=== PATIENT | female | born 1995 | race Caucasian/White ===

== ENCOUNTER 2017-12-10 09:58 | Outpatient (CLI) | payer MEDICAID, SELFPAY ==
[2017-12-10 10:34] LABS: HCT 36.7 % (36.0-46.0); HGB 12.7 g/dL (12.0-15.5); Mean Corp. HGB Concentration 34.6 g/dL (32.0-36.0); Mean Corpuscular Volume 92.4 fL (80-95); Mean Platelet Volume 10.6 fL (8.0-11.0); Platelet Count 220 x1000/uL (130-400); RBC 3.97 m/cumm (4.00-5.20); RBC Distribution Width 12.7 % (11.7-14.6)
[2017-12-10 11:48] LABS: ALT 20 U/L (12-78); AST 18 U/L (15-37); Albumin 3.9 g/dL (3.4-5.0); Alkaline Phosphatase 83 U/L (46-116); Anion Gap 10.6 mmol/L (3-11); BUN 8 mg/dL (7-18); Bilirubin, Total 0.5 mg/dL (0.2-1.0); CO2 25.4 mmol/L (21.0-32.0); CREATININE 0.81 mg/dL (0.55-1.02); Calcium 8.6 mg/dL (8.5-10.1); Chloride 104 mmol/L (98-107); Glucose 88 mg/dL (70-100); Potassium 4.1 mmol/L (3.5-5.1); Sodium 140 mmol/L (136-145); Total Protein 6.6 g/dL (6.4-8.2)
--- NOTE | 2017-12-10 23:27 | HPE_ITS ---
Date of service: 12/10/17 Time of Service: 09:26 Assessment and Plan (1) Pelvic pain: Current visit: Yes Status: Acute Plan at this time is to proceed with a vaginal hysterectomy. The patient was counseled regarding the risks of a hysterectomy including the risk of damage to the bowel bladder and blood vessels and need for transfusion or larger incision. I also counseled the patient that if we are unable to perform vaginal hysterectomy successfully we will proceed with laparoscopic approach. She is aware that there may not be an improvement in her pain with a hysterectomy. Plan at this time is to proceed with a dose of low molecular weight heparin prior to the procedure and daily for 6 weeks after the surgery. Informed consent was obtained her questions were answered she will be n.p.o. after midnight (2) Dysmenorrhea: Current visit: Yes Status: Acute History of Present Illness Chief Complaint: 22-year-old 042 female who presents for a preoperative H& P Narrative: Ms. Gambino presents for a preoperative H&P in anticipation of a vaginal hysterectomy on 12/11/2017. In brief; the patient underwent an elective repeat delivery with tubal sterilization on 06/19/2017. Her immediate postop course was unremarkable she was discharged home on postop day #2 breast- feeding and received prophylactic anticoagulation with low molecular weight heparin for 6 weeks for DVT prophylaxis Her pain began in June/2017 with incisional discomfort vaginal discharge and suprapubic pain she was treated with a course of clindamycin for presumed endometritis without improvement in her symptoms. 07/2017 pain localized to her left lower quadrant and was concerning for entrapment of the left iliohypogastric nerve. The symptoms eventually subsided prior to her having a formal evaluation of the pain clinic. She continued to breast-feed her daughter until August. -09/2017 she resumed irregular menses with significant dysmenorrhea pelvic ultrasounds performed that was normal for adnexa and uterus she was treated with a course of Cipro and Flagyl for presumed endomyometritis without improvement she required doses of both oxycodone or Vicodin in addition to NSAIDs with some but not long acting pain relief. 10/2017 Suri IUD was placed in attempt to treat her dysmenorrhea without relief she was unable to tolerate the Suri. And had minimal relief from NSAIDs or narcotics. 11/19/2017 the time of the patient's last office visit we discussed treatment options and the plan was to proceed with a vaginal hysterectomy with ovarian conservation for unremitting pelvic pain. Review of Systems Constitutional Reports anorexia (With accompanying nausea during dysmenorrhea) and Reports difficulty sleeping (Secondary to pelvic pain) Cardiovascular Reports system reviewed and no additional complaints, except as docu Respiratory Reports system reviewed and no additional complaints, except as docu Gastrointestinal Reports abdominal pain and Reports other (No changes in bowel habits no constipation or diarrhea) Genitourinary Reports light periods (Periods have that every 2-3 weeks with average amount of flow but significant disabling dysmenorrhea), Reports dyspareunia (She reports pain with intercourse and is unable to be sexually active secondary to her pelvic discomfort), Reports dysmenorrhea and Reports pelvic pain (Constant exacerbated with menses) Musculoskeletal Reports system reviewed and no additional complaints, except as docu Neurologic Reports system reviewed and no additional complaints, except as docu Psychiatric Reports anxiety (Concerned about undergoing surgery and having complications with either procedure or excessive pain postop) PFSH Medical History Dysmenorrhea (Acute) Pelvic pain (Acute) Raynauds phenomenon (Suspected) Migraine Dysmenorrhea (Acute) Hx pulmonary embolism Social History Smoking/Tobacco Use Status: Current every day Surgical History section (01/27/14) Ligation of fallopian tube (06/19/17) Female Reproductive History Menstrual Date of last menstrual period: 12/03/17 control method: permanent sterilization Total pregnancies: 6 Full term: 2 Premature: 0 Ab spontaneous: 4 Multiple births: 0 Meds Home Medications Medication Instructions Recorded Confirmed Type acetaminophen [Tylenol] 650 mg PO PRN PRN 10/27/15 12/10/17 History Proventil Hfa 1 puff INHALATION Q6H PRN #1 06/12/17 12/10/17 Clinic inhaler fluticasone [Flovent HFA] 1 puff INHALATION BID PRN 12/09/17 12/10/17 History oxycodone 10 mg PO Q4H PRN PRN 12/09/17 12/10/17 History Allergies Allergy/AdvReac Type Severity Reaction Status Date / Time amoxicillin Allergy Intermediate Hives Unverified 12/10/17 08:55 morphine Allergy Intermediate Hives Unverified 12/10/17 08:55 Exam Const General: cooperative, healthy appearing, comfortable and no acute distress Nutritional Appearance: average body habitus Orientation: alert, awake, oriented x3 and other Neck Neck: normal visual inspection Resp Effort & Inspection: normal respiratory effort Cardio Rate: regular rate Rhythm: regular rhythm Heart Sounds: S1 normal and S2 normal GI Inspection: normal to inspection and other (Stretch adhikari from ) Palpation: soft and no hepatosplenomegaly Speculum Exam - Vagina: other (Bimanual and speculum exam deferred) Bimanual Exam- Vagina & Uterus: other (Suprapubic tenderness with palpation of the uterus no evidence of adnexal tenderness with palpation) Back/Spine/Pelvis Back: no CVA tenderness Pelvis: tenderness over symphysis pubis Sacroiliac joints: bilaterally (Normal) Sacrum: other Skin General skin exam: no rashes or lesions noted Wounds: wounds noted (Surgical site well-healed) Neuro General: alert and oriented x3 Motor: strength 5/5 throughout DTR's: Rt Patellar: 1+ and Lt Patellar: 1+ Results Labs : 12/10/17 10:20 12/10/17 10:20 Laboratory Results - last 24 hr 12/10/17 12/10/17 12/10/17 10:20 10:20 10:20 WBC 4.40 RBC 3.97 L Hgb 12.7 Hct 36.7 MCV 92.4 MCH 32.0 MCHC 34.6 RDW 12.7 Plt Count 220 MPV 10.6 Sodium 140 Potassium 4.1 Chloride 104 Carbon Dioxide 25.4 Anion Gap 10.6 BUN 8 Creatinine 0.81 Estimated GFR/1.73 m2 >= 60.00 Glucose 88 Calcium 8.6 Total Bilirubin 0.5 AST 18 ALT 20 Alkaline Phosphatase 83 Total Protein 6.6 Albumin 3.9 Patient ABO/Rh B Positive Antibody Screen Negative
== END 2017-12-10 10:18 ==
PROVIDERS: PCP Nurse Practitioner Family; Visit Provider Obstetrics & Gynecology Gynecology
DX: R10.2 Pelvic and perineal pain (principal); N94.6 Dysmenorrhea, unspecified
CPT/HCPCS: 36415; 80053; 85027; 86850; 86900; 86901; NC

== ENCOUNTER 2017-12-11 14:22 | Observation (INO) | payer MEDICAID, SELFPAY ==
[2017-12-11] VITALS (15 sets, daily range): BP systolic 92–118; BP diastolic 39–73; PULSE 55–72; RESP 13–21; TEMP 36.1–36.9; O2SAT 97–99
[2017-12-11] MEDS: Lactated Ringers 1,000 ML 125 ML IV ×3 (10:05→16:59)
--- NOTE | 2017-12-11 13:40 | UTER_PTH ---
PATIENT: DAMIEN MCCARTNEY LOC: U#:[id number] AGE/SX: 22/F ROOM: 204 RE12/11/[address]: Nan Saleh : 1995 BED: A DIS: 12/12/2017 SPEC #: [id number] RECD: 12/11/17 15:31 STATUS: KIRA REQ #: [id number] MARIELA: 12/11/17 13:[address]: Nan Saleh DEPT: Surgical Specimen RECD BY: Santo Nunes ENTERED: 12/11/17 15:32 SP TYPE: UTER OTHR DR: Lux Silverman Tissues: 1 - UTERUS W OR W/O OVARIES(NOT TUMOR/PROLAPSE) Procedures: GROSS AND MICRO LEVEL 5 Comments: [id number]
[2017-12-11] MEDS: fentaNYL 100 MCG/2 ML VIAL IVP ×2 (15:51→16:04)
--- NOTE | 2017-12-11 16:15 | DSE_ITS ---
Discharge Plan Disposition Patient Disposition: HOME Condition: Fair Discharge Details Reason For Visit: DYSMENORRHEA, CHRONIC PELVIC PAIN Admit Date/Time: 12/11/17 14:22 Admit Provider: Nan Saleh Attending Provider: Nan Saleh Primary Care Provider: Lux Silverman Home Meds and New Rx's Prescriptions: Continue fluticasone [Flovent HFA] 12 GM HFA aerosol inhaler 1 puff Inhalation BID PRNRF: 0 No Action ibuprofen 600 mg tablet 600 mg PO QID PRN (Reason: pain) Qty: 60 RF: 1 albuterol sulfate [Proventil HFA] 90 mcg/actuation HFA aerosol inhaler 1 puff IH QID RF: 0 celecoxib [Celebrex] 200 mg capsule 200 mg PO BID PRN (Reason: pain) Qty: 30 RF: 1 acetaminophen [Tylenol] 325 MG tablet 650 mg PO PRN PRNRF: 0 Discharge Instructions Instructions: Dysmenorrhea (GEN), Laparoscopic Hysterectomy (DC) Additional Instructions: Postoperative Instructions Outpatient Gynecology PLEASE LIMIT YOUR ACTIVITY * Limit stair climbing for your first week at home. * You may increase your activity and stair climbing after that, gradually, as tolerated. YOU MAY * Shower and wash your hair at any time and tub baths with assistance. * If you have an abdominal incision, you may also wash your incision with warm water and soap, dry well. You may also use peroxide to clean your incision. AFTER YOUR FIRST WEEK AT HOME * You may do light housekeeping, leave the house, and ride in a car. * You may drive a car yourself for short trips after (2) weeks. * To help with your recovery, you should resume daily activities as soon as you feel able. * You will probably be able to return to work 4-6 weeks after your surgery. AVOID * Vigorous exercise or heavy lifting for (6) six weeks after your surgery. * Please abstain from intercourse, douching, and using tampons for (4) four weeks or until your physician indicates that this is acceptable. YOU MAY HAVE * Some vaginal bleeding and/or discharge for (2) two to (3) three weeks after your surgery. * Use pads only. * Please contact the office if you have any sudden, heavy vaginal bleeding. TO AVOID CONSTIPATION * You may use over the counter products, for example; Metamucil, Fibercon, Colace, or Milk of Magnesia. * Also, eat a well balanced, high fiber diet and drink plenty of liquids. * You may also use a girdle or abdominal support, if you wish for comfort, but it is not required. CALL THE OFFICE * If you have any signs of infection, such as; a temperature greater than 100.4F , general ill feelings, redness or discharge at the site of the incision, or foul smelling vaginal discharge. * If you experience any new symptoms, such as; nausea, vomiting, abdominal swelling, or severe pain. * As soon as you are able to, schedule a follow-up appointment for 2 weeks from surgery. * Please make the appointments with the physician that performed your surgery. MEDICATIONS * You may use ibuprofen 600 mg every (6) six hours for pain- Advil, Motrin IB, and Ibuprofen that you buy without a prescription are the same medicine as prescribed Motrin or Ibuprofen. The kind you buy without prescription are 200mg so you may take 3 of these at a time if you did not receive a prescription for Ibuprofen. * You may take Oxycodone for severe pain not relieved with Ibuprofen. Take on tablet of Oxycodone 10mg ever 4 hours as needed. Please call the office with any questions or concerns at [phone]. Stand Alone Forms: Nursing Discharge Form Referrals: Nan Saleh MD [ [facility] STAFF PHYSICIAN] - (Please call the office to schedule a follow up appointment within 10 days. [phone]) Activity:: Activity as Tolerated Equipment/Supplies:: No Equipment Needed Diet:: As Tolerated Discharge Orders Discharge Orders: Discharge Order (Routine); Ordered 12/12/17 Ordered By: Pita Moore Discharge Data Discharge Date/Time-TO BE ENTERED AT DEPARTURE: 12/12/17 13:28 DS: Data Vitals/I&O Vitals and I&O: Vital Signs Temp 97.3 F L 12/11/17 16:10 Pulse 72 12/11/17 16:10 Resp 21 12/11/17 16:10 BP 105/73 12/11/17 16:10 Pulse Ox 97 12/11/17 16:10 Intake & Output 12/10/17 12/11/17 12/11/17 23:59 11:59 23:59 Intake Total 1000 / 1000 Output Total 450 / 450 Balance 550 / 550 Weight 168 lb 10.458 oz Intake: IV 1000 / 1000 Output: Urine 450 / 450 Other: Urine Color Pale Urine Appearance Clear Comment PACU. Emesis Description None
[2017-12-11] MEDS: Normal Saline Flush 10 ML SYR IV ×6 (16:50→23:45)
[2017-12-11] MEDS: LORazepam 2 MG/ML VIAL 0.5 MG IVP ×3 (16:50→22:12)
[2017-12-11] MEDS: Enoxaparin 40 MG/0.4 ML SYR SC (16:51)
[2017-12-11] MEDS: oxyCODONE 10 MG TAB PO ×2 (16:51→21:35)
[2017-12-11] MEDS: HYDROmorphone 2 MG/ML VIAL 1 MG IVP (17:05)
--- NOTE | 2017-12-11 17:39 | W.PM.OP ---
Date of service: 12/11/17 Time of Service: 17:39 Operative Note DATE OF PROCEDURE: 12/11/17 PRE-OP DIAGNOSIS: Dysmenorrhea and chronic pelvic pain POST-OP DIAGNOSIS: same PROCEDURE: Vaginal hysterectomy with ovarian conservation. Postoperative bladder cystoscopy SURGEON: Nan Slaeh ANESTHESIA: GETA (With ultrasound-guided abdominal wall nerve block) ESTIMATED BLOOD LOSS: 50 PATHOLOGY: other COMPLICATIONS: None Patient was transported to: PACU Patient's condition: stable Implants: None Indications: 22-year-old multiparous female with intractable pelvic pain since a repeat delivery in May 2017. Pain not responsive to antibiotics presumed and metritis, nonsteroidal anti-inflammatories Mirena IUD or oral narcotics. Imaging studies normal Findings: Small uterus with parents. Normal right adnexa with function ovarian cyst fallopian tubes had previously been removed Procedure Description: Patient was taken to the operating room where she is placed in the dorsal supine position and general endotracheal anesthesia administered without difficulty she was then positioned on her right lateral side and an ultrasound guided nerve block was performed. She was then positioned on her left side and similar technique was carried out under ultrasound guidance. She was then placed in the dorsal lithotomy position in [facility] in a neurologically neutral position, prepped and draped in usual sterile fashion. A Jung catheter was placed to gravity drainage. Ancef 2 g IV was administered. SCDs were in place. A weighted vaginal speculum was placed in the vagina and the cervix was grasped with single-tooth tenaculum. The body of the cervix infiltrated with 1% lidocaine with epinephrine. A Bovie electrocautery device was used to incise the cervix and a circumferential fashion. This allowed the posterior cervical epithelium to be dissected and the posterior cul-de-sac entered sharply with a curved [place]o scissors. Through this incision a duck billed weighted speculum was inserted and left in place. The anterior cervical tissue was dissected off of the underlying body of the cervix to allow mobilization of the bladder. We are unable to to enter the anterior cul-de-sac. A LigaSure device was used to grasp cauterize and transect the left cardinal sacral ligament complex. A similar technique was carried out on the contralateral right cardinal sacral ligament complex. The LigaSure device was advanced along the broad ligament bialterally until we were able to mobilize the anterior cervical epithelium away from the bladder. This allowed entry into the anterior cul-de-sac with Metzenbaum scissors and through the incision placement of a curved [place] retractor. The remaining broad ligament was clamped cauterized and transected to the level of the uterine cornua. The patient had previously undergone a bilateral salpingectomy at the time for repeat delivery. The left uterine cornua was clamped and cauterized and transected without difficulty and a similar technique was carried out on the contralateral side. The uterus was delivered and transferred to pathology. Careful inspection of the pedicles was performed with excellent hemostasis noted. The peritoneum was closed on 3 of's 4 sides with a pursestring suture using 2-0 Vicryl. I was unable to appreciate the cold the peritoneum over the bladder so the pursestring suture was not placed. Vaginal cuff was then closed with a series of interrupted sutures of 0 Vicryl with excellent hemostasis achieved. Instruments were removed and the patient's vagina bladder cystoscopy was performed with a 30? angle camera. All bladder pradhan were carefully inspected with no evidence of lesions or active bleeding. Both bladder ostia were noted to be peristalsing with eflux of clear urine. Bladder cystoscopy was completed the patient was placed in the dorsal supine position awakened from anesthesia extubated and transported to recovery area in stable condition all sponge lap needle counts correct ?2.
[2017-12-11] MEDS: Ketorolac 30 MG/ML VIAL IVP (19:27)
[2017-12-11] MEDS: HYDROmorphone 2 MG/ML VIAL IVP ×2 (20:06→23:44)
[2017-12-11] MEDS: Docusate Sodium 100 MG CAP PO (20:08)
[2017-12-11] MEDS: Acetaminophen 500 MG TAB PO (21:36)
[2017-12-11] MEDS: diphenhydrAMINE 25 MG CAP PO (21:39)
[2017-12-12] MEDS: LORazepam 2 MG/ML VIAL 0.5 MG IVP ×2 (01:06→03:32)
[2017-12-12] MEDS: Lactated Ringers 1,000 ML 125 ML IV ×2 (01:07→09:48)
[2017-12-12] MEDS: Normal Saline Flush 10 ML SYR IV ×3 (01:07→03:32)
[2017-12-12] MEDS: Ketorolac 30 MG/ML VIAL IVP (01:30)
[2017-12-12 03:25] VITALS: BP 119/70; PULSE 70; RESP 20; TEMP 37.3; O2SAT 96
[2017-12-12] MEDS: Acetaminophen 500 MG TAB PO ×2 (03:32→11:23)
[2017-12-12 07:15] VITALS: BP 110/64; PULSE 69; RESP 17; TEMP 36.5; O2SAT 98
[2017-12-12 07:45] LABS: ALT 17 U/L (12-78); AST 17 U/L (15-37); Albumin 2.9 g/dL (3.4-5.0); Alkaline Phosphatase 74 U/L (46-116); Anion Gap 8.3 mmol/L (3-11); BUN 9 mg/dL (7-18); Bilirubin, Total 0.3 mg/dL (0.2-1.0); CO2 25.7 mmol/L (21.0-32.0); CREATININE 0.62 mg/dL (0.55-1.02); Calcium 7.9 mg/dL (8.5-10.1); Chloride 109 mmol/L (98-107); Glucose 135 mg/dL (70-100); Potassium 3.9 mmol/L (3.5-5.1); Sodium 143 mmol/L (136-145); Total Protein 5.5 g/dL (6.4-8.2)
--- NOTE | 2017-12-12 08:04 | PDOC.CMIN ---
Care Management Initial Assess REASON FOR HOSPITALIZATION:: Dysmenorrhea, Chronic Pelvic Pain PAST MEDICAL HISTORY/PAST SURGICAL HISTORY:: vaginal hysterectomy on 12/11/2017, Pelvic pain, Raynauds phenomenon, Migraine, Dysmenorrhea, Hx pulmonary embolism, section (01/27/14), Ligation of fallopian tube (06/19/17), Depression, Tension type headache, anxiety PREVIOUS FUNCTIONAL STATUS/SOCIAL/FAMILY SUPPORTS:: Lena resides in [place] with her significant other and their two children, a son who is four and daughter who is six monthes old. 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 She relies on her sister, who is at [facility] with her today. She reports having the resources she needs and a good support system. CURRENT FUNCTIONAL STATUS:: Lena is lying on her side, in bed, she is forthcoming with information and pleasant in interaction. ADVANCE DIRECTIVES:: None on file at [facility]. Has patient been provided with information about the portal?: Yes Did the patient sign up for the portal?: No CODE STATUS:: Full Code INSURANCE COVERAGE / FINANCIAL ISSUES:: Medicaid CURRENT HOME/COMMUNITY SERVICES/EQUIPMENT:: No current services or equipment PRIMARY CARE PHYSICIAN:: Lux Silverman POTENTIAL DISCHARGE NEEDS:: Follow up appointment PATIENT/FAMILY EDUCATION NEEDS:: Review discharge instructions, discuss Ask Me Three. ANTICIPATED BARRIERS TO DISCHARGE:: None identified. TRANSPORTATION:: Via private vehicle with family. PLAN:: Lena will return home when ready per MD. She will follow up with OB and her PCP. No additional services at this time. She will transport home via private vehicle with her sister.
--- NOTE | 2017-12-12 09:34 | INITIAL_ITS ---
Care Management Initial Assess REASON FOR HOSPITALIZATION:: Dysmenorrhea, Chronic Pelvic Pain PAST MEDICAL HISTORY/PAST SURGICAL HISTORY:: vaginal hysterectomy on 12/11/2017, Pelvic pain, Raynauds phenomenon, Migraine, Dysmenorrhea, Hx pulmonary embolism , section (01/27/14), Ligation of fallopian tube (06/19/17), Depression , Tension type headache, anxiety PREVIOUS FUNCTIONAL STATUS/SOCIAL/FAMILY SUPPORTS:: Lena resides in [place] with her significant other and their two children, a son who is four and daughter who is six monthes old. 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 She relies on her sister, who is at [facility] with her today. She reports having the resources she needs and a good support system. CURRENT FUNCTIONAL STATUS:: Lena is lying on her side, in bed, she is forthcoming with information and pleasant in interaction. ADVANCE DIRECTIVES:: None on file at [facility]. Has patient been provided with information about the portal?: Yes Did the patient sign up for the portal?: No CODE STATUS:: Full Code INSURANCE COVERAGE / FINANCIAL ISSUES:: Medicaid CURRENT HOME/COMMUNITY SERVICES/EQUIPMENT:: No current services or equipment PRIMARY CARE PHYSICIAN:: Lux Silverman POTENTIAL DISCHARGE NEEDS:: Follow up appointment PATIENT/FAMILY EDUCATION NEEDS:: Review discharge instructions, discuss Ask Me Three. ANTICIPATED BARRIERS TO DISCHARGE:: None identified. TRANSPORTATION:: Via private vehicle with family. PLAN:: Lena will return home when ready per MD. She will follow up with OB and her PCP. No additional services at this time. She will transport home via private vehicle with her sister.
[2017-12-12] MEDS: Docusate Sodium 100 MG CAP PO (10:01)
[2017-12-12] MEDS: oxyCODONE 10 MG TAB PO ×2 (10:01→13:17)
[2017-12-12] MEDS: Ibuprofen 600 MG TAB PO (10:02)
[2017-12-12 11:12] VITALS: BP 116/75; PULSE 65; RESP 18; TEMP 37.2; O2SAT 98
== END 2017-12-12 13:28 | disposition home or self-care (01) ==
LOC: MS 15:05
PROVIDERS: Admitting Provider Obstetrics & Gynecology Gynecology; PCP Nurse Practitioner Family; Visit Provider Obstetrics & Gynecology Gynecology
PROC: 0UT9FZZ Resection of Uterus, Via Natural or Artificial Opening With Percutaneous Endoscopic Assistance (ICD-10-PCS; CPT 58260; principal; 2017-12-11 10:30)
DX: N94.6 Dysmenorrhea, unspecified (principal); G89.28 Other chronic postprocedural pain; R10.2 Pelvic and perineal pain
CPT/HCPCS: 58260; 52000; 36415; 76942; 80053; 99238; J1650; 88307; G0378; J0131; J1100; J1885; J2060; J2250; J2405; J3010; J3475

== ENCOUNTER 2017-12-31 17:49 | Outpatient (REF) | payer MEDICAID, SELFPAY ==
[2017-12-31 20:52] LABS: *AMPHETAMINES SCREEN URINE Negative (Negative); *BARBITURATES SCREEN URINE Negative (Negative); *BENZODIAZEPINES SCREEN URINE Negative (Negative); Cannabinoids THC Negative (Negative); Cocaine Screen,Urine Negative (Negative); METHADONE URINE SCREEN Negative (Negative); OPIATES URINE SCREEN Negative (Negative)
[2017-12-31 20:56] LABS: Tricyclic Antidepressants Negative (Negative)
== END 2017-12-31 18:09 ==
LOC: LBN 17:49
PROVIDERS: PCP Nurse Practitioner Family; Visit Provider Obstetrics & Gynecology Gynecology
DX: R10.2 Pelvic and perineal pain (principal)
CPT/HCPCS: 80307

== ENCOUNTER 2018-01-29 12:55 | Outpatient (REF) | payer MEDICAID, SELFPAY ==
[2018-01-29 14:48] LABS: *AMPHETAMINES SCREEN URINE Negative (Negative); *BARBITURATES SCREEN URINE Negative (Negative); *BENZODIAZEPINES SCREEN URINE Negative (Negative); Cannabinoids THC Negative (Negative); Cocaine Screen,Urine Negative (Negative); METHADONE URINE SCREEN Negative (Negative); OPIATES URINE SCREEN Negative (Negative)
[2018-01-29 14:50] LABS: Tricyclic Antidepressants Negative (Negative)
== END 2018-01-29 13:15 ==
LOC: LBN 12:55
PROVIDERS: PCP Nurse Practitioner Family; Visit Provider Obstetrics & Gynecology Gynecology
DX: R10.9 Unspecified abdominal pain (principal)
CPT/HCPCS: 80307

== ENCOUNTER 2019-08-07 15:04 | Outpatient (REF) | payer MEDICAID, SELFPAY | END 2019-08-07 15:24 | LOC: LBN 15:04 | PROVIDERS: PCP Nurse Practitioner Family; Visit Provider Obstetrics & Gynecology Gynecology | DX: R30.0 Dysuria (principal) | CPT/HCPCS: 87086 ==

== ENCOUNTER 2020-06-04 13:38 | Emergency (ER) | payer MEDICAID, SELFPAY ==
[2020-06-04 13:49] VITALS: BP 124/84; PULSE 86; RESP 18; TEMP 36.8; O2SAT 99
--- NOTE | 2020-06-04 14:16 | ED.GENADUL_ITS ---
Discharge Plan Disposition Patient Disposition: HOME Condition: Stable Discharge Details Clinical Impression: Epigastric abdominal pain, Back pain, Heavy alcohol use Primary Care Provider: Lux Silverman ED Provider: Jamila Olivo Home Meds and New Rx's Prescriptions: New sucralfate [Carafate] 1 gram tablet 1 gm PO QACHS Qty: 30 RF: 0 pantoprazole [Protonix] 40 mg tablet,delayed release (DR/EC) 40 mg PO BID Qty: 30 RF: 0 Continued ibuprofen 600 mg tablet 600 mg PO QID PRN (Reason: pain) Qty: 60 RF: 1 albuterol sulfate [Proventil HFA] 90 mcg/actuation HFA aerosol inhaler 1 puff IH QID RF: 0 dextroamphetamine-amphetamine [Adderall XR] 20 mg capsule,extended release 24hr 10 mg PO BID RF: 0 acetaminophen [Tylenol] 325 MG tablet 650 mg PO PRN PRNRF: 0 Flovent HFA 12 GM HFA aerosol inhaler 1 puff Inhalation BID PRNRF: 0 Discharge Instructions Instructions: Peptic Ulcer (ED), Gastritis (ED), Abuse of Alcohol (ED), Epiga stric Pain (ED) Additional Instructions: Start slowly decreasing your alcohol intake. Do not abruptly stop alcohol as this can cause withdrawal and lead to seizures and even possibly . Follow- up with your primary care doctor for referral to rehab or detoxification centers. Maintain a low acid and soft diet. Take the Protonix and Carafate as directed. Take Tylenol as needed and directed for pain. Take the oxycodone for pain not relieved with Tylenol. Take Zofran as needed and directed for nausea and vomiting. Do not take NSAIDs such as ibuprofen for pain as this can cause or worsen an ulcer. Your prescription(s) has been sent electronically to your pharmacy. Call the pharmacy to make sure your prescription(s) is ready before pickup. Take the prescription(s) as directed. Call the general surgery office on Saturday to schedule a follow-up appointment for reevaluation within the next week for reevaluation and consideration for upper endoscopy to rule out an ulcer. Call your primary care doctor on Saturday to schedule a follow-up appointment for reevaluation and for recheck of your liver enzymes. Your CAT scan noted a fatty liver and your liver enzymes were elevated today which is likely the result of excessive alcohol use. Return immediately to the emergency department if you develop any worsening or new concerning symptoms. Referrals: Cassandra Sosa MD [ [facility] STAFF PHYSICIAN] - Discharge Data Discharge Physician: Jamila Olivo Medical Decision Making 25-year-old female with a history of migraines and previous pulmonary embolism, tubal ligation, section and hysterectomy secondary to dysmenorrhea pres ents for mid scapular pain for 3 weeks, and nausea and left upper quadrant abdominal pain for the past 3 days. She also admits to drinking 12-18 alcoholic beverages daily for the past year. Vitals within normal limits. Patient appears uncomfortable but nontoxic. Patient is hunched over forward on the bed resting on her elbows. Back normal to inspection. She has minimal left upper quadrant tenderness. Differential diagnosis includes acute pancreatitis, gastritis, cholecystitis, cholelithiasis, diverticulitis, kidney stone, UTI, pyelonephritis, small bowel obstruction, etc. Will place an IV, bolus IV fluids, screening labs, CT chest abdomen pelvis and give Dilaudid, Pepcid and GI cocktail. Labs reviewed. Normal white blood cell count. Anion gap 13. Minimal elevation of AST and ALT. Lipase normal. Urinalysis notes 3-5 WBCs which appeared contaminated. Patient complaining of continued pain, another dose of Dilaudid ordered. CT reviewed and notes fatty liver but no PE or other acute abdominal process. Case discussed with Dr. Sosa. Agrees with plan for Carafate 4 times daily, Protonix twice daily and a low acid soft diet. Patient given Carafate dose here with some improvement. Patient also requested a few tabs of pain medication for home to help her sleep tonight. Discussed with patient that I suspect her symptoms may be due to alcoholic gastritis, esophagitis, or peptic ulcer disease. As she is hemodynamically stable with a normal white blood cell count and no other acute findings on CT, I feel that patient is appropriate for discharge and she is agreeable with this plan. Patient placed on surgery follow-up list. She is advised on importance of safely decreasing her alcohol intake and to not stop abruptly. 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 Usual and customary return precautions given prior to discharge. Medical Records Medical records reviewed: Yes I reviewed the patient's medical records. Imaging Data Radiologic Study: Radiologist's impression: CT Angiography Chest With Contrast Exam date and time: 06/04/2020 2:51 PM Age: 25 years old Clinical indication: Chest pain; Other: Mid scapular pain; Abdominal pain; Localized; Left upper quadrant (luq); Patient HX: Patient sts has had prior pe's; Additional info: 20 g lac insufficient iv per er nurse TECHNIQUE: Imaging protocol: Computed tomographic angiography of the chest with contrast. 3D rendering (Not supervised by radiologist): MIP and/or 3D reconstructed images were created by the technologist. Radiation optimization: All CT scans at this facility use at least one of these dose optimization techniques: automated exposure control; mA and/or kV adjustment per patient size (includes targeted exams where dose is matched to clinical indication); or iterative reconstruction. Contrast material: OMNIPAQUE 350; Contrast volume: 100 ml; Contrast route: INTRAVENOUS (IV); COMPARISON: No relevant prior studies available. FINDINGS: Pulmonary arteries: Normal. No pulmonary emboli. Aorta: Unremarkable. No aortic aneurysm. No aortic dissection. Lungs: Unremarkable. No consolidation. No masses. Pleural spaces: Unremarkable. No pneumothorax. No pleural effusion. Heart: Unremarkable. No cardiomegaly. No pericardial effusion. Lymph nodes: Unremarkable. No enlarged lymph nodes. Bones/joints: Unremarkable. No acute fracture. Soft tissues: Unremarkable. IMPRESSION: No evidence of pulmonary embolism or other acute abnormality. PROCEDURE INFORMATION: Exam: CT Angiography Abdomen With Contrast Exam date and time: 06/04/2020 2:51 PM Age: 25 years old Clinical indication: Chest pain; Other: Mid scapular pain; Abdominal pain; Localized; Left upper quadrant (luq); Patient HX: Patient sts has had prior pe's; Additional info: 20 g lac insufficient iv per er nurse TECHNIQUE: Imaging protocol: Computed tomographic angiography images of the abdomen with intravenous contrast material. 3D rendering (Not supervised by radiologist): MIP and/or 3D reconstructed images were created by the technologist. Radiation optimization: All CT scans at this facility use at least one of these dose optimization techniques: automated exposure control; mA and/or kV adjustment per patient size (includes targeted exams where dose is matched to clinical indication); or iterative reconstruction. Contrast material: OMNIPAQUE 350; Contrast volume: 100 ml; Contrast route: INTRAVENOUS (IV); COMPARISON: No relevant prior studies available. FINDINGS: Aorta: No aortic aneurysm. No aortic dissection. Celiac trunk and mesenteric arteries: No occlusion or significant stenosis. Renal arteries: No occlusion or significant stenosis. Inferior vena cava: No clot is seen within the iliac veins or IVC. Liver: The liver is diffusely decreased in density. Gallbladder and bile ducts: Normal. No calcified stones. No ductal dilation. Pancreas: Normal. No ductal dilation. Spleen: Normal. No splenomegaly. Adrenals: Normal. No mass. Kidneys and ureters: Normal. No hydronephrosis. Stomach and bowel: Unremarkable. No obstruction. No mucosal thickening. Lymph nodes: Unremarkable. No enlarged lymph nodes. Intraperitoneal space: Unremarkable. No free air. No significant fluid collection. Reproductive: The uterus appears unremarkable. No adnexal masses are seen. Bones/joints: Unremarkable. No acute fracture. No dislocation. Soft tissues: Unremarkable. IMPRESSION: 1. Fatty liver disease. 2. Unremarkable CTA abdomen. Lab Data Lab results reviewed: Yes I reviewed the patient's lab results. Labs: Laboratory Tests Range/Units 06/04/20 06/04/20 06/04/20 14:15 14:32 14:32 WBC (4.4-10.8) 10^3/uL 8.05 RBC (3.93-5.22) 10^6/uL 4.07 Hgb (11.2-15.7) g/dL 14.1 Hct (36.0-46.0) % 39.9 MCV (80-95) fL 98.0 H MCH (27.0-33.0) pg 34.6 H MCHC (32.0-36.0) % 35.3 RDW (11.7-14.6) % 12.0 Plt Count (130-400) 10^3/uL 222 MPV (8.0-11.0) fL 9.0 Immature Gran % 0.2 Neutrophils % 84.8 Lymphocytes % 7.6 Monocytes % 6.2 Eosinophils % 0.5 Basophils % 0.7 Nucleated RBC % % 0 Absolute Neutrophils (1.2-6.7) 10^3/uL 6.82 H Absolute Lymphocytes (1.2-3.4) 10^3/uL 0.61 L Absolute Monocytes (0.1-0.8) 10^3/uL 0.50 Absolute Eosinophils (0.0-0.7) 10^3/uL 0.04 Absolute Basophils (0.0-0.2) 10^3/uL 0.06 Sodium (136-145) mmol/L 135 L Potassium (3.5-5.1) mmol/L 4.0 Chloride (98-107) mmol/L 96 L Carbon Dioxide (21.0-32.0) mmol/L 26.0 Anion Gap (3-11) mmol/L 13.0 H BUN (7-18) mg/dL 5 L Creatinine (0.55-1.02) mg/dL 0.7 Estimated GFR/1.73 m2 (mL/min/1.73m2) >= 60.00 Glucose (74-106) mg/dL 76 Calcium (8.5-10.1) mg/dL 9.1 Total Bilirubin (0.2-1.0) mg/dL 0.7 AST (15-37) U/L 57 H ALT (14-59) U/L 60 H Alkaline Phosphatase (46-116) U/L 114 Total Protein (6.4-8.2) g/dL 7.9 Albumin (3.4-5.0) g/dL 4.3 Lipase (73-393) U/L 72 Urine Color (Yellow) Yellow Urine Clarity (Clear) Clear Urine pH (5-8) 7.0 Ur Specific [place] (1.005-1.025) 1.010 Urine Protein (Negative) mg/dL Negative Urine Ketones (Negative) mg/dL Trace H Urine Blood (Negative) Trace-intact H Urine Nitrite (Negative) Negative Urine Bilirubin (Negative) Negative Urine Urobilinogen (Up TO 0.2) EU/dL 0.2 Ur Leukocyte Esterase (Negative) Trace H Urine RBC (0-2) HPF 3-5 H Urine WBC (0-5) HPF 3-5 Ur Epithelial Cells (Negative) HPF Moderate Urine Crystals (Negative) HPF Negative Urine Bacteria (Negative) HPF Rare Urine Casts (Negative) LPF Negative Urine Mucus (Negative) Negative Ur Culture Indicated? No/sq. contamination Urine Glucose (Negative) mg/dL Negative HPI General Mode of arrival: ambulatory . Date/Time Provider Initiated Documentation: 06/04/20 13:46 . Limitations to Documentation: no limitations . Information obtained by: patient . HPI Narrative: Patient is a 25-year-old female with a history of kidney stones, migraine headaches, pulmonary embolism, , bilateral salpingectomy who presents to the ED with complaint of mid scapular pain for the past 3 weeks and left flank and left upper quadrant abdominal pain for the past 3 days. She states she has been vomiting at least once daily but up to 10 times daily over the past 2 weeks. She states she vomited is usually bile. She states she normally has an 1-2 bowel movements daily but has not had a bowel movement for the past 3 days. She states her pain is scapular pain that is sharp and intermittent. She states 3 days ago she started with left flank and left upper quadrant abdominal pain which is radiating to her left lower quadrant and right lower quadrant. She states the p ain is also intermittent and sharp. She states the pain in her abdomen and back is sometimes worse with certain positions which and better with laying on her right side or sitting up straight. She takes ibuprofen at least once daily for pain as needed. She also states that for the past year she has drank 12 to 18 cans of white claw alcoholic seltzer. She states her last drink was this afternoon. She denies any drug use. Related Data Home Medications Medication Instructions Recorded Confirmed acetaminophen [Tylenol] 650 mg PO PRN PRN 10/27/15 06/04/20 Flovent HFA 1 puff INHALATION BID PRN 12/09/17 06/04/20 ibuprofen 600 mg tablet 600 mg PO QID PRN #60 tab 12/20/17 06/04/20 albuterol sulfate 90 mcg/actuation 1 puff IH QID 01/29/18 06/04/20 aerosol inhaler dextroamphetamine-amphetamine ER 10 mg PO BID 08/07/19 08/07/19 20 mg 24hr capsule,extend release pantoprazole [Protonix] 40 mg PO BID #30 tab 06/04/20 sucralfate [Carafate] 1 gm PO QACHS #30 tab 06/04/20 Previous Rx's Medication Instructions Recorded ibuprofen 600 mg tablet 600 mg PO QID PRN #60 tab 12/20/17 pantoprazole [Protonix] 40 mg PO BID #30 tab 06/04/20 sucralfate [Carafate] 1 gm PO QACHS #30 tab 06/04/20 Allergies Allergy/AdvReac Type Severity Reaction Status Date / Time amoxicillin Allergy Intermediate Hives Unverified 06/04/20 13:53 morphine Allergy Intermediate hives and Unverified 06/04/20 13:53 itchy throat tramadol Allergy Intermediate Verified 06/04/20 13:53 General Stated Complaint: Abd Prob EV: 3 Review of Systems All systems reviewed & are unremarkable except as noted in HPI and below Constitutional Constitutional: Reports as per HPI, Denies chills and Denies fever(s) Eyes Eyes: Denies blurry vision ENT Ears, Nose, Mouth, and Throat: Denies dizziness, Denies sore throat and Denies t hroat swelling Cardiovascular Cardiovascular: Denies chest pain and Denies dyspnea Respiratory Respiratory: Denies cough and Denies dyspnea Gastrointestinal Gastrointestinal: Reports abdominal pain, Denies diarrhea and Reports vomiting Genitourinary Genitourinary: Denies hematuria and Denies dysuria Musculoskeletal Musculoskeletal: Denies back pain and Denies numbness Integumentary/Breasts Skin/Breast: Denies lesions and Denies rash Neurologic Neurologic: Denies dizziness, Denies localized weakness and Denies numbness Allergic/Immunologic Allergic/Immunologic: Denies throat swelling [facility] Medical History (Updated 06/04/20 @ 18:45 by Jamila Olivo DO) Dysmenorrhea Presents since resumption of menses after her repeat delivery 05/2017. No relief with narcotics or NSAIDs. Normal pelvic ultrasound Dysmenorrhea Hx pulmonary embolism 03/2014. Pt was 2mo PP from LTCS. Nexplanon in place. R sided PE. Rx with Coumadin and switched to LMWH for 6mo Rx. Had compliance issues with daily inj. Need 1. Hem w/u re: thrombophilia w/u at [facility].2. Admission notes from [facility] 03/2014. Pt will begin Lovenox 40mg SQ daily. Recommend MFM consult at [facility]. Migraine extensive w/u including CT, MRI of head, LP. Neuro consult @[facility] 10/2015. Pain on voiding 07/2019 referred to [facility] urology Pelvic pain Present after her repeat delivery and bilateral tubal sterilization. Not responsive to conservative measures. Eventually treated with a vaginal hysterectomy 11/2017. Postop course has been complicated by continued pain symptoms Raynauds phenomenon Surgical History (Updated 01/08/18 @ 14:33 by [employer] [place]) section (01/27/14) 39w EGA. Oxytocin augmentation of labor. NRFHR. LTCS w/ 2 layer closure. Rj Amos. 06/19/17 Elective RC/S. with BTL. Edwar Webb. [facility]. [facility] H/O hysterectomy for benign disease 12/11/17. Laparoscopic hysterectomy for chronic dysmenorrhea and pelvic pain after her repeat C/S. Ovaries conserved. Ligation of fallopian tube (06/19/17) bilateral salpingectomy at time of RC/S. Social History (Updated 01/29/18 @ 10:50 by Mora Madrigal LPN) Smoking/Tobacco Use Status: Current every day Smoking risk assessment performed?: Yes Alcohol Intake: current Alcohol Intake frequency: 3 or more drinks per day Alcohol type: wine and other Drug use: Never Substance use type: does not use Number of Children: 2 Seatbelt use: always Do you feel safe at home: Yes Do you feel safe in your relationship?: Yes Female Reproductive History Menstrual control method: permanent sterilization History History 6 Para Hx # Term Pregnancies 2 Multiple births 0 Hx # Pregnancies 0 Ectopic pregnancies AB induced Hx Number of Living Children AB spontaneous Course Vital Signs Vital signs: Vital Signs Temperature 98.3 F 06/04/20 13:49 Pulse 86 06/04/20 13:49 Respiratory Rate 18 06/04/20 13:49 Blood Pressure 124/84 06/04/20 13:49 Pulse Oximetry 99 06/04/20 13:49 Temperature 98.3 F 06/04/20 13:49 Temperature Source Temporal Artery Scan 06/04/20 13:49 Pulse 86 06/04/20 13:49 Respiratory Rate 18 06/04/20 13:49 Respiratory Effort Non-Labored 06/04/20 13:56 Blood Pressure 124/84 06/04/20 13:49 Blood Pressure Position Sitting 06/04/20 13:49 Pulse Oximetry 99 06/04/20 13:49 Oxygen Delivery Method Room Air 06/04/20 13:49 Oxygen Flow Rate 0 06/04/20 13:49 Pain Level 8 06/04/20 13:49
[2020-06-04 14:23] LABS: Bilirubin Negative (Negative); Blood Trace-intact (Negative); Clarity Clear (Clear); Glucose Negative (Negative); Ketones Trace mg/dL (Negative); Leukocyte Esterase Trace (Negative); Nitrite Negative (Negative); Urobilinogen 0.2 EU/dL (Up TO 0.2)
[2020-06-04 14:33] LABS: Bacteria Rare HPF (Negative); C & S Indicated? No/Sq. Contamination; Casts Negative LPF (Negative); Crystals Negative HPF (Negative); Epithelial Cells Moderate HPF (Negative); Mucus Negative (Negative)
[2020-06-04 14:41] LABS: Abs Immature Grans 0.02 10^3/uL (0.0-0.06); Absolute Basophil Count 0.06 10^3/uL (0.0-0.2); Absolute Eosinophil Count 0.04 10^3/uL (0.0-0.7); Absolute Lymphocyte Count 0.61 10^3/uL (1.2-3.4); Absolute Neutrophil Count 6.82 10^3/uL (1.2-6.7); Basophils % 0.7; Eosinophils % 0.5; HCT 39.9 % (36.0-46.0); HGB 14.1 g/dL (11.2-15.7); Immature Grans % 0.2; Lymphocytes % 7.6; MCH 34.6 pg (27.0-33.0); MCHC 35.3 % (32.0-36.0); Monocytes % 6.2; Neutrophils % 84.8; Nucleated RBC 0 %; Platelet Count 222 10^3/uL (130-400); RBC 4.07 10^6/uL (3.93-5.22); RDW-SD 43.6 fL; WBC 8.05 10^3/uL (4.4-10.8)
--- NOTE | 2020-06-04 14:45 | DI.CT_ITS ---
EXAM: CT CHEST PE ABD PELVIS W TECHNIQUE: CT angiography of the chest, abdomen and pelvis was performed with bolus infusion of 100 cc of Omnipaque 350. Axial CT angiography was performed with multi-slice acquisition and multi-planar and/or 3D reconstruc tions. COMPARISON: No exams were available for comparison FINDINGS: The lungs are clear. No pleural effusion. No evidence of pulmonary embolic disease. No thoracic aort ic dissection or aneurysm. Major branches of the thoracic aorta appear normal. No pleural effusion. No mediastinal or hilar adenopathy. Tracheobronchial tree appears intact. Note is made of hepatic steatosis. No focal hepatic or renal abnormality seen. Gallbladder and bile ducts are CT normal. Pancreas is unremarkable. Spleen shows unremarkable early arterial phase pattern of enhancement. No abdominal aortic aneurysm or dissection. Major branches of the abdominal aorta appear normal. No a bdominal or pelvic adenopathy. Normal appendix. No significant abdominal wall hernia. No focal bowel pathology. IMPRESSION: No evidence of acute vascular abnormality of the chest, abdomen or pelvis Note is made of hepatic steatosis. RADIATION DOSE DELIVERED: 1,088.34mGy.cm Total DLP 1,088.34mGy.cm Total DLP DATA REPOSITORY: All CT scans at this facility are submitted to the National Radiology Data Registry (NRDR) Dose Index Registry (DIR) with the [employer] (A[employer]). RADIATION OPTIMIZATION: All CT scans at this facility use at least one of these dose optimization te chniques: automated exposure control; mA and/or kV adjustment per patient size (includes targeted exa ms where dose is matched to clinical indication); or iterative reconstruction.
[2020-06-04 14:53] LABS: ALT 60 U/L (14-59); AST 57 U/L (15-37); Albumin 4.3 g/dL (3.4-5.0); Alkaline Phosphatase 114 U/L (46-116); BUN 5 mg/dL (7-18); Bilirubin, Total 0.7 mg/dL (0.2-1.0); CREATININE 0.7 mg/dL (0.55-1.02); Calcium 9.1 mg/dL (8.5-10.1); Chloride 96 mmol/L (98-107); Glucose 76 mg/dL (74-106); Lipase 72 U/L (73-393); Sodium 135 mmol/L (136-145); Total Protein 7.9 g/dL (6.4-8.2)
[2020-06-04] MEDS: HYDROmorphone 2 MG/ML VIAL 0.5 MG IVP (15:17)
[2020-06-04] MEDS: FAMOTIDINE 20 MG/50 ML BAG 200 MG IVPB (15:17)
[2020-06-04] MEDS: Normal Saline 1,000 ML 1000 ML IV (15:18)
[2020-06-04] MEDS: Ondansetron 4 MG/2 ML VIAL IVP (15:18)
[2020-06-04] MEDS: Omnipaque 350 MG/ML 100 ML BTL IJ (15:44)
[2020-06-04] MEDS: Normal Saline - Diluent 50 ML VIAL IV (15:56)
[2020-06-04] MEDS: HYDROmorphone 2 MG/ML VIAL 1 MG IVP (16:50)
--- NOTE | 2020-06-04 17:07 | DI.VRAD_ITS ---
PROCEDURE INFORMATION: Exam: CT Angiography Chest With Contrast Exam date and time: 06/04/2020 2:51 PM Age: 25 years old Clinical indication: Chest pain; Other: Mid scapular pain; Abdominal pain; Localized; Left upper quadrant (luq); Patient HX: Patient sts has had prior pe's; Additional info: 20 g lac insufficient iv per er nurse TECHNIQUE: Imaging protocol: Computed tomographic angiography of the chest with contrast. 3D rendering (Not supervised by radiologist): MIP and/or 3D reconstructed images were created by the technologist. Radiation optimization: All CT scans at this facility use at least one of these dose optimization techniques: automated exposure control; mA and/or kV adjustment per patient size (includes targeted exams where dose is matched to clinical indication); or iterative reconstruction. Contrast material: OMNIPAQUE 350; Contrast volume: 100 ml; Contrast route: INTRAVENOUS (IV); COMPARISON: No relevant prior studies available. FINDINGS: Pulmonary arteries: Normal. No pulmonary emboli. Aorta: Unremarkable. No aortic aneurysm. No aortic dissection. Lungs: Unremarkable. No consolidation. No masses. Pleural spaces: Unremarkable. No pneumothorax. No pleural effusion. Heart: Unremarkable. No cardiomegaly. No pericardial effusion. Lymph nodes: Unremarkable. No enlarged lymph nodes. Bones/joints: Unremarkable. No acute fracture. Soft tissues: Unremarkable. IMPRESSION: No evidence of pulmonary embolism or other acute abnormality. PROCEDURE INFORMATION: Exam: CT Angiography Abdomen With Contrast Exam date and time: 06/04/2020 2:51 PM Age: 25 years old Clinical indication: Chest pain; Other: Mid scapular pain; Abdominal pain; Localized; Left upper quadrant (luq); Patient HX: Patient sts has had prior pe's; Additional info: 20 g lac insufficient iv per er nurse TECHNIQUE: Imaging protocol: Computed tomographic angiography images of the abdomen with intravenous contrast material. 3D rendering (Not supervised by radiologist): MIP and/or 3D reconstructed images were created by the technologist. Radiation optimization: All CT scans at this facility use at least one of these dose optimization techniques: automated exposure control; mA and/or kV adjustment per patient size (includes targeted exams where dose is matched to clinical indication); or iterative reconstruction. Contrast material: OMNIPAQUE 350; Contrast volume: 100 ml; Contrast route: INTRAVENOUS (IV); COMPARISON: No relevant prior studies available. FINDINGS: Aorta: No aortic aneurysm. No aortic dissection. Celiac trunk and mesenteric arteries: No occlusion or significant stenosis. Renal arteries: No occlusion or significant stenosis. Inferior vena cava: No clot is seen within the iliac veins or IVC. Liver: The liver is diffusely decreased in density. Gallbladder and bile ducts: Normal. No calcified stones. No ductal dilation. Pancreas: Normal. No ductal dilation. Spleen: Normal. No splenomegaly. Adrenals: Normal. No mass. Kidneys and ureters: Normal. No hydronephrosis. Stomach and bowel: Unremarkable. No obstruction. No mucosal thickening. Lymph nodes: Unremarkable. No enlarged lymph nodes. Intraperitoneal space: Unremarkable. No free air. No significant fluid collection. Reproductive: The uterus appears unremarkable. No adnexal masses are seen. Bones/joints: Unremarkable. No acute fracture. No dislocation. Soft tissues: Unremarkable. IMPRESSION: 1. Fatty liver disease. 2. Unremarkable CTA abdomen. Dictated and Authenticated by: Marcellus Burnett MD. Ordering:ZAIDA Marino MD
[2020-06-04 17:46] VITALS: BP 117/74; PULSE 102; RESP 16; O2SAT 96
[2020-06-04] MEDS: Sucralfate 1 GM TAB PO (17:52)
[2020-06-04 19:10] VITALS: BP 126/85; PULSE 96; RESP 20; TEMP 36.7; O2SAT 99
[2020-06-04] MEDS: Pantoprazole 40 MG TABCR 80 MG PO (19:20)
[2020-06-04] MEDS: Sucralfate 1 GM TAB 4 GM PO (19:20)
[2020-06-04] MEDS: Ondansetron O.D.T. 4 MG TABEF, 3 TABS/BTL PO (19:21)
== END 2020-06-04 19:24 | disposition home or self-care (01) ==
PROVIDERS: Emergency Provider Physician Assistant; PCP Nurse Practitioner Family
DX: R10.13 Epigastric pain (principal); M54.6 Pain in thoracic spine; F10.929 Alcohol use, unspecified with intoxication, unspecified
CPT/HCPCS: 36415; 71275; 74177; 80053; 81025; 83690; 96361; 96365; 96375; 96376; 99285; 81003; 81015; 85025; 99281; J2405; J3490

== ENCOUNTER 2020-07-05 15:53 | Emergency (ER) | payer MEDICAID, SELFPAY ==
[2020-07-05 16:01] VITALS: PULSE 80; RESP 16; TEMP 36.5; O2SAT 99
[2020-07-05] MEDS: Normal Saline Flush 10 ML SYR IVP ×2 (16:10→17:43)
[2020-07-05] MEDS: Lactated Ringers 1,000 ML 1000 ML IV (16:20)
[2020-07-05 16:23] LABS: Abs Immature Grans 0.02 10^3/uL (0.0-0.06); Absolute Basophil Count 0.08 10^3/uL (0.0-0.2); Absolute Eosinophil Count 0.06 10^3/uL (0.0-0.7); Absolute Lymphocyte Count 0.96 10^3/uL (1.2-3.4); Absolute Neutrophil Count 6.01 10^3/uL (1.2-6.7); Eosinophils % 0.8; HGB 14.2 g/dL (11.2-15.7); Immature Grans % 0.3; Lymphocytes % 12.3; MCHC 34.6 % (32.0-36.0); Monocytes % 8.9; Neutrophils % 76.7; Nucleated RBC 0 %; Platelet Count 210 10^3/uL (130-400); RBC 4.06 10^6/uL (3.93-5.22); RDW 12.1 % (11.7-14.6); RDW-SD 45.9 fL; WBC 7.83 10^3/uL (4.4-10.8)
[2020-07-05 16:24] LABS: Bilirubin Negative (Negative); Blood Negative (Negative); Clarity Clear (Clear); Glucose Negative (Negative); Ketones Negative (Negative); Leukocyte Esterase Negative (Negative); Nitrite Negative (Negative); Specific Gravity 1.015 (1.005-1.025); Urobilinogen 0.2 EU/dL (Up TO 0.2)
[2020-07-05 16:39] LABS: Alkaline Phosphatase 96 U/L (46-116); BUN 5 mg/dL (7-18); CREATININE 0.7 mg/dL (0.55-1.02); Calcium 9.5 mg/dL (8.5-10.1); Chloride 98 mmol/L (98-107); Glucose 97 mg/dL (74-106); Sodium 138 mmol/L (136-145)
[2020-07-05] MEDS: Ondansetron 4 MG/2 ML VIAL IVP (16:52)
[2020-07-05] MEDS: FAMOTIDINE 20 MG/50 ML BAG 200 MG IVPB (16:55)
[2020-07-05 16:56] LABS: ALT 56 U/L (14-59); AST 50 U/L (15-37); Albumin 4.3 g/dL (3.4-5.0); Anion Gap 13.3 mmol/L (3-11); Bilirubin, Total 0.4 mg/dL (0.2-1.0); CO2 26.7 mmol/L (21.0-32.0); Lipase 155 U/L (73-393); Potassium 3.4 mmol/L (3.5-5.1); Total Protein 7.5 g/dL (6.4-8.2)
[2020-07-05 16:57] VITALS: BP 128/87; PULSE 84; RESP 20; O2SAT 100
--- NOTE | 2020-07-05 17:05 | ED.GENADUL_ITS ---
Discharge Plan Disposition Patient Disposition: HOME Condition: Stable Discharge Details Clinical Impression: Abdominal pain, Nausea & vomiting, Alcohol use disorder Primary Care Provider: Malika Perry ED Provider: Prashant Mccoy Home Meds and New Rx's Prescriptions: New famotidine [Pepcid] 20 mg tablet 20 mg PO BID Qty: 60 RF: 0 Continued albuterol sulfate [Proventil HFA] 90 mcg/actuation HFA aerosol inhaler 1 puff IH QID RF: 0 dextroamphetamine-amphetamine [Adderall XR] 20 mg capsule,extended release 24hr 10 mg PO BID RF: 0 acetaminophen [Tylenol] 325 MG tablet 650 mg PO PRN PRNRF: 0 sucralfate [Carafate] 1 gram tablet 1 gm PO QACHS Qty: 30 RF: 0 pantoprazole [Protonix] 40 mg tablet,delayed release (DR/EC) 40 mg PO BID Qty: 30 RF: 0 Flovent HFA 12 GM HFA aerosol inhaler 1 puff Inhalation BID PRNRF: 0 Discontinued ibuprofen 600 mg tablet 600 mg PO QID PRN (Reason: pain) Qty: 60 RF: 1 Discharge Instructions Instructions: Peptic Ulcer (ED), Alcohol Use Disorder (ED) Additional Instructions: Please follow-up with general surgery for evaluation and likely endoscopy. Call as soon as possible to arrange timely follow-up. Please stop abusing alcohol. [facility]up with [facility] and your primary care physician regarding alcohol use disorder. Return to the emergency department for any worsening or new concerning symptoms. Referrals: [facility] [Outside] Malika Perry [Primary Care Provider] - Medical Decision Making 1711 -- 25-year-old female here with intermittent abdominal pain and nausea vomiting for the past 2 months, seen here 06/04/2020 for abdominal pain he had negative CT of the abdomen pelvis, labs were concerning for elevated LFTs attributed to alcohol abuse. She continues to have intermittent abdominal pain and nausea vomiting. Today abdominal pain is localized to left upper quadrant, severe, associated nausea vomiting and loose stool. She has been taking Protonix and Carafate as prescribed and has discontinued use of NSAIDs. Unfortunately she continues to consume heavy amounts of alcohol daily. Plan to give IV fluid bolus, Zofran IV, Pepcid IV and reassess. Initial labs reviewed, no leukocytosis, no significant electrolyte abnormalities, AST mildly elevated and improved from prior. Considered pancreatitis. Lipase is normal. --Labs reviewed and nondiagnostic. Patient reassessed and continues to have thompson n. Acetaminophen IV and Tums administered 191 --CT abdomen pelvis was interpreted by radiology: Thickening throughout the colon diagnosed with colitis versus decompressed bowel. Patient reassessed and has had significant improvement in discomfort. She is feeling much better and requesting discharge. Plan will be for discharge with close outpatient follow-up with general surgery for endoscopy. Patient was instructed to follow-up with her primary care physician and [facility] regarding initiating treatment for alcoholism Usual customary discharge instructions reviewed with the patient HPI General Mode of arrival: ambulatory . Date/Time Provider Initiated Documentation: 07/05/20 16:11 . Limitations to Documentation: no limitations . Information obtained by: patient . HPI Narrative: 25-year-old female with history of alcoholism, presents with chief complaint of abdominal pain. Patient notes pain in her left upper abdomen and radiating around her flank since early this morning. Pain is crampy and severe. She states she has been having intermittent abdominal pain for the past 2 months. Today she has associated nausea and vomiting as well as loose stool. Vomitus described as bilious and nonbloody. Stool is described as watery yellow-brown. Patient was seen here in the emergency department on 06/04/2020 for similar presentation and had diagnostic work-up including labs and CT of the abdomen pelvis that was nondiagnostic. She was started on PPI and advised to stop taking NSAIDs and follow-up with general surgery for endoscopy. She has not yet followed up with GI or surgery. She did see her primary care physician who advised to continue PPI. Patient notes she continues to consume alcohol, 1 bottle of wine per night. Her last drink was today around noon. Related Data Home Medications Medication Instructions Recorded Confirmed acetaminophen [Tylenol] 650 mg PO PRN PRN 10/27/15 07/05/20 Flovent HFA 1 puff INHALATION BID PRN 12/09/17 07/05/20 albuterol sulfate 90 mcg/actuation 1 puff IH QID 01/29/18 07/05/20 aerosol inhaler dextroamphetamine-amphetamine ER 10 mg PO BID 08/07/19 07/05/20 20 mg 24hr capsule,extend release pantoprazole [Protonix] 40 mg PO BID #30 tab 06/04/20 07/05/20 sucralfate [Carafate] 1 gm PO QACHS #30 tab 06/04/20 07/05/20 famotidine [Pepcid] 20 mg PO BID #60 tab 07/05/20 Previous Rx's Medication Instructions Recorded pantoprazole [Protonix] 40 mg PO BID #30 tab 06/04/20 sucralfate [Carafate] 1 gm PO QACHS #30 tab 06/04/20 famotidine [Pepcid] 20 mg PO BID #60 tab 07/05/20 Allergies Allergy/AdvReac Type Severity Reaction Status Date / Time amoxicillin Allergy Intermediate Hives Unverified 07/05/20 16:07 morphine Allergy Intermediate hives and Unverified 07/05/20 16:07 itchy throat tramadol Allergy Intermediate Verified 07/05/20 16:07 General Stated Complaint: Abd Prob EV: 3 Review of Systems All systems reviewed & are unremarkable except as noted in HPI and below Constitutional Constitutional: Denies fever(s) Gastrointestinal Gastrointestinal: Reports as per HPI Genitourinary Genitourinary: Denies abnormal vaginal bleeding, Denies hematuria, Denies difficulty voiding, Denies genital lesions, Reports dysuria and Denies pelvic pain [facility] Medical History (Updated 07/05/20 @ 19:18 by Prashant Mccoy MD) Alcoholism Dysmenorrhea Presents since resumption of menses after her repeat delivery 05/2017. No relief with narcotics or NSAIDs. Normal pelvic ultrasound Dysmenorrhea Hx pulmonary embolism 03/2014. Pt was 2mo PP from LTCS. Nexplanon in place. R sided PE. Rx with Coumadin and switched to LMWH for 6mo Rx. Had compliance issues with daily inj. Need 1. Hem w/u re: thrombophilia w/u at [facility].2. Admission notes from [facility] 03/2014. Pt will begin Lovenox 40mg SQ daily. Recommend MFM consult at [facility] [place]. Migraine extensive w/u including CT, MRI of head, LP. Neuro consult @[facility] 10/2015. Pain on voiding 07/2019 referred to [facility] urology Pelvic pain Present after her repeat delivery and bilateral tubal sterilization. Not responsive to conservative measures. Eventually treated with a vaginal hysterectomy 11/2017. Postop course has been complicated by continued pain symptoms Raynauds phenomenon Surgical History section (01/27/14) 39w EGA. Oxytocin augmentation of labor. NRFHR. LTCS w/ 2 layer closure. Rj Amos. 06/19/17 Elective RC/S. with Edwar Zavalaalina. 3900gm. ao H/O hysterectomy for benign disease 12/11/17. Laparoscopic hysterectomy for chronic dysmenorrhea and pelvic pain after her repeat C/S. Ovaries conserved. Ligation of fallopian tube (06/19/17) bilateral salpingectomy at time of RC/S. Social History Smoking/Tobacco Use Status: Current every day Tobacco Type: cigarettes Smoking risk assessment performed?: Yes Alcohol Intake: current Alcohol Intake frequency: 3 or more drinks per day Alcohol type: wine and other Drug use: Never Substance use type: does not use Number of Children: 2 Seatbelt use: always Do you feel safe at home: Yes Do you feel safe in your relationship?: Yes Female Reproductive History Menstrual control method: permanent sterilization History History 6 Para Hx # Term Pregnancies 2 Multiple births 0 Hx # Pregnancies 0 Ectopic pregnancies AB induced Hx Number of Living Children AB spontaneous Exam Const General: cooperative and no acute distress HENMT Mouth: mucous membranes dry Eyes Conjunctivae: normal conjunctivae Sclera: normal sclerae Neck Neck: trachea midline and supple Resp Auscultation: clear to auscultation bilaterally, no rales, no rhonchi and no wheezes Cardio Rate: regular rate and not tachycardic Rhythm: regular rhythm GI Palpation: soft, not firm, no guarding, no masses and not rigid Skin General skin exam: no rashes or lesions noted Neuro General: patient alert, patient awake and tone normal Extrem General: no edema Psych Appearance: grossly normal Mental Status: mental status grossly normal Course Vital Signs Vital signs: Vital Signs Temperature 36.5 C 07/05/20 16:01 Pulse 80 07/05/20 16:01 Respiratory Rate 16 07/05/20 16:01 Pulse Oximetry 99 07/05/20 16:01 Temperature 36.5 C 07/05/20 16:01 Temperature Source Skin 07/05/20 16:01 Pulse 84 07/05/20 16:57 Respiratory Rate 20 07/05/20 16:57 Respiratory Effort Non-Labored 07/05/20 16:59 Blood Pressure 128/87 07/05/20 16:57 Pulse Oximetry 100 07/05/20 16:57 Oxygen Delivery Method Room Air 07/05/20 16:57 Oxygen Flow Rate 0 07/05/20 16:57 Pain Level 8 07/05/20 16:57 Lab/Test Results Lab/Test Results: Laboratory Tests Range/Units 07/05/20 07/05/20 07/05/20 14:10 16:10 16:10 WBC (4.4-10.8) 10^3/uL 7.83 RBC (3.93-5.22) 10^6/uL 4.06 Hgb (11.2-15.7) g/dL 14.2 Hct (36.0-46.0) % 41.0 MCV (80-95) fL 101.0 H MCH (27.0-33.0) pg 35.0 H MCHC (32.0-36.0) % 34.6 RDW (11.7-14.6) % 12.1 Plt Count (130-400) 10^3/uL 210 MPV (8.0-11.0) fL 9.0 Immature Gran % 0.3 Neutrophils % 76.7 Lymphocytes % 12.3 Monocytes % 8.9 Eosinophils % 0.8 Basophils % 1.0 Nucleated RBC % % 0 Absolute Neutrophils (1.2-6.7) 10^3/uL 6.01 Absolute Lymphocytes (1.2-3.4) 10^3/uL 0.96 L Absolute Monocytes (0.1-0.8) 10^3/uL 0.70 Absolute Eosinophils (0.0-0.7) 10^3/uL 0.06 Absolute Basophils (0.0-0.2) 10^3/uL 0.08 Sodium (136-145) mmol/L 138 Potassium (3.5-5.1) mmol/L 3.4 L Chloride (98-107) mmol/L 98 Carbon Dioxide (21.0-32.0) mmol/L 26.7 Anion Gap (3-11) mmol/L 13.3 H BUN (7-18) mg/dL 5 L Creatinine (0.55-1.02) mg/dL 0.7 Estimated GFR/1.73 m2 (mL/min/1.73m2) >= 60.00 Glucose (74-106) mg/dL 97 Calcium (8.5-10.1) mg/dL 9.5 Total Bilirubin (0.2-1.0) mg/dL 0.4 AST (15-37) U/L 50 H ALT (14-59) U/L 56 Alkaline Phosphatase (46-116) U/L 96 Total Protein (6.4-8.2) g/dL 7.5 Albumin (3.4-5.0) g/dL 4.3 Lipase (73-393) U/L 155 Urine Color (Yellow) Yellow Urine Clarity (Clear) Clear Urine pH (5-8) 8.0 Ur Specific Ackerman (1.005-1.025) 1.015 Urine Protein (Negative) mg/dL Negative Urine Ketones (Negative) mg/dL Negative Urine Blood (Negative) Negative Urine Nitrite (Negative) Negative Urine Bilirubin (Negative) Negative Urine Urobilinogen (Up TO 0.2) EU/dL 0.2 Ur Leukocyte Esterase (Negative) Negative Urine Glucose (Negative) mg/dL Negative POC- Test(urine) Negative
--- NOTE | 2020-07-05 17:15 | DI.CT_ITS ---
EXAM: CT ABDOMEN PELVIS W CLINICAL HISTORY: left upper abd to flankpain, N/V/D. TECHNIQUE: Imaging Protocol: Axial computed tomography images with coronal and sagittal reformatted images were created and reviewed CONTRAST MATERIAL: Intravenous: Omnipaque 100cc Oral: None COMPARISON: CT CT CHEST PE ABD PELVIS W from 06/04/2020 FINDINGS: VISUALIZED LUNG BASES: Mild benign-appearing increased markings in the right lung base posterior basa l segment right lower lobe. No pleural effusions.. ABDOMEN: There is no ascites. LIVER: There are no focal hepatic lesions evident. Left hepatic lobe is again noted to cross the heather ter and encircle the spleen, this being a normal-variant. There is a Paddock steatosis although this is somewhat less profound than on the prior study. GALLBLADDER/BILIARY: There is some layering sludge in the gallbladder. No calcified gallstones. No gallbladder wall edema. CBD is not dilated. PANCREAS: No evidence of pancreatic mass nor dilatation of the pancreatic duct. SPLEEN: Spleen is not enlarged. No obvious intrasplenic lesions. Splenic and portal veins are paten t. ADRENALS: There are no significant adrenal masses. KIDNEYS:No cysts evident. No solid renal masses. No calculi nor hydronephrosis.. ABDOMINAL AORTA: Abdominal aorta is not enlarged. LYMPH NODES:There is no retroperitineal nor paraaortic adenopathy. ABDOMINAL WALL/GI: No evidence of significant anterior abdominal wall hernia. PELVIS: GI: There is no evidence of appendicitis.No evidence of sigmoid diverticulitis.The appearance of the colon is somewhat suspicious for possible colitis. However, similar finding can be seen in a: Which does not contain oral contrast. LYMPH NODES: There is no intrapelvic nor inguinal adenopathy. REPRODUCTIVE: Age-appropriate URINARY BLADDER: Somewhat distended but no masses nor calculi noted therein. OSSEOUS: No significant osseous lesions. Sacroiliac joints appear unremarkable IMPRESSION: 1. Compared to the prior CT scan of 06/04/2020 the amount of hepatic steatosis appears to have somewh at decreased. There are no ominous discrete focal hepatic lesions identified. 2. There is some sludge in the gallbladder but no gallstones nor evidence of acute cholecystitis. No dilatation of the biliary tree. 3. There appears to be some mild bowel wall thickening throughout the colon, possibly colitis versus just decompressed bowel which does not contain oral contrast which can have similar appearance. 4. There is no ascites. RADIATION DOSE DELIVERED: 810.23mGy.cm Total DLP DATA REPOSITORY: All CT scans at this facility are submitted to the National Radiology Data Registry (NRDR) Dose Index Registry (DIR) with the [employer] (ACR). RADIATION OPTIMIZATION: All CT scans at this facility use at least one of these dose optimization te chniques: automated exposure control; mA and/or kV adjustment per patient size (includes targeted exa ms where dose is matched to clinical indication); or iterative reconstruction.
[2020-07-05] MEDS: Omnipaque 350 MG/ML 100 ML BTL IJ (17:44)
[2020-07-05] MEDS: Normal Saline - Diluent 50 ML VIAL IV (17:46)
[2020-07-05] MEDS: Calcium Carbonate *TUMS* 500 MG CHEW 1000 MG PO (18:29)
--- NOTE | 2020-07-05 18:30 | DI.VRAD_ITS ---
PROCEDURE INFORMATION: Exam: CT Abdomen And Pelvis With Contrast Exam date and time: 07/05/2020 5:41 PM Age: 25 years old Clinical indication: Other: Left upper abd to flankpain, n/v/d TECHNIQUE: Imaging protocol: Computed tomography of the abdomen and pelvis with contrast. Radiation optimization: All CT scans at this facility use at least one of these dose optimization techniques: automated exposure control; mA and/or kV adjustment per patient size (includes targeted exams where dose is matched to clinical indication); or iterative reconstruction. Contrast material: OMNIPAQUE 350; Contrast volume: 100 ml; Contrast route: INTRAVENOUS (IV); COMPARISON: CT ABD PELVIS WITH CONTRAST 08/22/2016 3:40 PM FINDINGS: Liver: Normal. No mass. Gallbladder and bile ducts: Normal. No calcified stones. No ductal dilation. Pancreas: Normal. No ductal dilation. Spleen: Normal. No splenomegaly. Adrenal glands: Normal. No mass. Kidneys and ureters: There is no evidence of renal or ureteral calcifications. Stomach and bowel: Bowel wall thickening throughout the colon may represent colitis versus decompressed bowel. Appendix: No evidence of appendicitis. Intraperitoneal space: Unremarkable. No free air. No significant fluid collection. Vasculature: Unremarkable. No abdominal aortic aneurysm. Lymph nodes: Unremarkable. No enlarged lymph nodes. Urinary bladder: Unremarkable as visualized. Reproductive: Unremarkable as visualized. Bones/joints: Unremarkable. No acute fracture. Soft tissues: Unremarkable. IMPRESSION: Bowel wall thickening throughout the colon may represent colitis versus decompressed bowel. Dictated and Authenticated by: Merly Estrella MD. Ordering:ERICA Cerda MD
[2020-07-05] MEDS: ACETAMINOPHEN 1,000 MG/100 ML BTL 400 MG IVPB (18:34)
--- NOTE | 2020-07-05 19:28 | NUR.NOTE ---
Nursing Note: referal sent to care management to make appointment for general surgery and pcp for gastric ulcer 07/05/20
[2020-07-05 19:35] VITALS: BP 133/84; PULSE 87; RESP 18; O2SAT 100
--- NOTE | 2020-07-06 12:31 | PDOC.ERCMPRO ---
- If Service Date Differs Date of service: 07/06/20 Time of Service: 12:31 Care Management Progress Note Lena is seen in the ED for abdominal pain, nausea and vomiting. At the request of ED provider, IRINA coordinates a referral to [facility] to assist Lena in obtaining an appointment for evaluation and treatment. IRINA also notifies Lena's PCP, SHARI Jurado, of the ED visit and requests they see patient for a follow up appointment.
== END 2020-07-05 19:45 | disposition home or self-care (01) ==
PROVIDERS: Emergency Provider Student in an Organized Health Care Education/Training Program; PCP Registered Nurse
DX: R11.2 Nausea with vomiting, unspecified (principal); R10.12 Left upper quadrant pain; F10.20 Alcohol dependence, uncomplicated
CPT/HCPCS: 36415; 80053; 81025; 83690; 96361; 96365; 96367; 96375; 99285; 74177; 81003; 85025; 99284; J0131; J2405; J3490